=== PATIENT | female | born 1970 | race Caucasian/White ===

== ENCOUNTER → 2018-10-28 | Outpatient (CLI) | payer OTHER ==
--- NOTE | 2018-10-28 11:51 | RAD ---
EXAM DESCRIPTION: Ankle,Left 3 Views CLINICAL HISTORY: 47 years, Female, PAIN IN LEFT ANKLE AND JOINTS OF LEFT FOOT COMPARISON: None. TECHNIQUE: AP/lateral/oblique of the left ankle FINDINGS: Intact medial and lateral malleolus. Spurring at the medial malleolus. There is extensive soft tissue swelling laterally and medially. Intact proximal metatarsals. Intact dome of the talus. Lateral view shows no evidence of fracture of the body of the talus or calcaneus. Moderate plantar and small dorsal calcaneal spurring is seen. No ankle joint narrowing, spurring or effusion. IMPRESSION: Negative for fracture or dislocation. Electronically signed by: Jarrell Gupta MD 10/28/2018 11:49 AM CDT
== END ==
LOC: YCFC.O 10:49
PROVIDERS: ATTEND Nurse Practitioner Family
DX: M25.572 Pain in left ankle and joints of left foot (principal)

== ENCOUNTER → 2019-05-22 | Outpatient (CLI) | payer OTHER ==
--- NOTE | 2019-05-22 16:49 | MAM ---
EXAM DESCRIPTION: 3D Screening BILATERAL : Digital Mammography. CLINICAL HISTORY: 48 years Female SCREENING MAMMO . No complaints. No personal history of breast cancer. Mother with breast cancer age 67. No remote family history of breast cancer. Menarche age 10. Childbirth age 18. Partial hysterectomy age 26. Left breast biopsy benign fibroadenoma.. Lifetime risk of developing breast cancer (Tyrer-Cuzick model)(%): 22.0. COMPARISON: Prior studies not yet available for comparison.. No prior reports available. TECHNIQUE: Bilateral CC and MLO projection full-field images, digital tomosynthesis and digital 2-D mammographic technique. CAD available for 2-D images. Note: Tomosynthesis was not utilized for the anterior and outer breast margins due to large size of bilateral breasts. FINDINGS: The breast parenchymal density pattern is: Scattered areas of fibroglandular density. No skin thickening or nipple retraction. Lobulated mass density in the surrounding soft tissues in the upper outer quadrant of the middle third of the left breast contains a biopsy site marker consistent with history of benign fibroadenoma biopsy. Bilateral solitary microcalcifications. Posterior inferior skin mole marker. Bilateral small mass densities in the breast more prevalent in the middle third and anterior third. IMPRESSION: BI-RADS CATEGORY: 0 - INCOMPLETE- Need prior mammograms for comparison. FOLLOW-UP: Comparison with prior examination(s) when available. Written communication explaining the results and follow-up will be mailed to the patient and referring care provider. Electronically signed by: Edison Bell MD 05/22/2019 4:47 PM [facility]
== END ==
LOC: LAB.O 07:05
PROVIDERS: ATTEND Family Medicine
DX: Z12.31 Encounter for screening mammogram for malignant neoplasm of breast (principal); R60.0 Localized edema; R63.5 Abnormal weight gain; E78.5 Hyperlipidemia, unspecified

== ENCOUNTER → 2019-11-20 | Outpatient (CLI) | payer OTHER | LOC: YCFC.O 11:41 | PROVIDERS: ATTEND Nurse Practitioner | DX: Z03.818 Encounter for observation for suspected exposure to other biological agents ruled out (principal) ==

== ENCOUNTER → 2019-12-30 | Outpatient (CLI) | payer OTHER | LOC: YCFC.O 07:53 | PROVIDERS: ATTEND Family Medicine | DX: E78.5 Hyperlipidemia, unspecified (principal); I10 Essential (primary) hypertension; R06.09 Other forms of dyspnea; R53.83 Other fatigue ==

== ENCOUNTER → 2020-02-04 | Outpatient (CLI) | payer OTHER | LOC: YCFC.O 09:43 | PROVIDERS: ATTEND Family Medicine | DX: Z20.828 Contact with and (suspected) exposure to other viral communicable diseases (principal) ==

== ENCOUNTER 2020-02-20 05:15 | Day surgery (SDC) | payer OTHER ==
[2020-02-20] MEDS ORDERED: PROPOFOL 200 MG/20 ML VIAL IV ONE (05:16)
[2020-02-20] MEDS ORDERED: LIDOCAINE 1% 10 ML VIAL INJ ONE (05:16)
[2020-02-20] MEDS ORDERED: LACTATED RINGERS 1,000 ML ONE (06:41)
[2020-02-20] MEDS ORDERED: KETAMINE HCL 100 MG/ML VIAL ONE (10:02)
--- NOTE | 2020-02-20 10:50 | OP ---
DATE OF PROCEDURE: 02/20/20 PREOPERATIVE DIAGNOSIS: 1. Screening colonoscopy. POSTOPERATIVE DIAGNOSIS: 1. One polyp at 40 cm. PROCEDURE: 1. Colonoscopy with forceps polypectomy. SURGEON: Bry Thomas MD ANESTHESIA: General. FINDINGS: There was a single 2.5 cm polyp, slightly elongated. Otherwise normal. There was some vegetable material throughout, but we did get an adequate exam. COMPLICATIONS: None. PLAN: Discharge. INDICATION: As stated. PROCEDURE: General anesthesia was induced in the lateral position. Digital rectal exam was normal. The colonoscope was inserted. There was some irrigation necessary due to some liquid stool and vegetable matter, but we got all the way to the cecum. In the cecum, there was more vegetable material which was irrigated extensively until we were certain we saw all surfaces. Upon withdrawal, the mucosal surfaces appeared normal. There was a single polyp on a fold, slightly elongated at about 40 cm. This was completely excised. No other abnormalities were seen. The patient tolerated the procedure and was taken to Recovery to be discharged. Followup for biopsy result. #[id number] cc: Nargis Huynh MD MTDD
[2020-02-20 11:36] VITALS: BP 138/98; TEMP 97.3; O2SAT 97
== END 2020-02-20 11:20 | disposition home or self-care (01) ==
LOC: AMB 05:15
PROVIDERS: ATTEND Surgery
DX: Z12.11 Encounter for screening for malignant neoplasm of colon (principal); K63.5 Polyp of colon; F41.9 Anxiety disorder, unspecified; K59.00 Constipation, unspecified; F32.9 Major depressive disorder, single episode, unspecified; K76.0 Fatty (change of) liver, not elsewhere classified; E66.01 Morbid (severe) obesity due to excess calories; Z68.43 Body mass index [BMI] 50.0-59.9, adult; Z90.710 Acquired absence of both cervix and uterus; Z96.653 Presence of artificial knee joint, bilateral; Z79.899 Other long term (current) drug therapy
CPT/HCPCS: 00812; 45380; J3490; J7120

== ENCOUNTER → 2020-03-10 | Outpatient (CLI) | payer OTHER | LOC: NM 08:07 | PROVIDERS: ATTEND Family Medicine | DX: R06.09 Other forms of dyspnea (principal); I34.0 Nonrheumatic mitral (valve) insufficiency; I36.1 Nonrheumatic tricuspid (valve) insufficiency; R94.31 Abnormal electrocardiogram [ECG] [EKG] ==

== ENCOUNTER → 2020-06-18 | Outpatient (CLI) | payer OTHER ==
--- NOTE | 2020-06-22 15:18 | MAM ---
EXAM DESCRIPTION: 3D Screening BILATERAL : Digital Mammography. CLINICAL HISTORY: 49 years Female SCREENING . No complaints. Mother with breast cancer age 67. Remote family history of breast cancer. Menarche age 10. Childbirth age 18. Partial hysterectomy age 28. No HRT. Benign fibroadenoma on left breast biopsy. Lifetime risk of developing breast cancer (Tyrer-Cuzick model)(%): 20.2. COMPARISON: Bilateral screening digital breast tomosynthesis April 2019 TECHNIQUE: Bilateral CC and MLO projection full-field images, digital tomosynthesis mammographic technique. Bilateral digital 2-D full-field MLO images. Tiling technique with 2-D images bilaterally due to size of the breasts. CAD available for 2-D images. FINDINGS: The breast parenchymal density pattern is: Almost entirely fatty. Stable biopsy proven benign fibroadenoma seen as dense mass with lobulated and circumscribed contour and small calcifications in the middle third of the lateral left breast. Biopsy site marker clip in the mass. Axillary nodes. Solitary microcalcifications. No skin thickening or nipple retraction No new focal, stellate mass or density, focal asymmetry , and no suspicious microcalcifications bilaterally. Stable mammograms compared to prior study. IMPRESSION: Benign exam. BIRAD CATEGORY: 2 BENIGN FINDINGS. RECOMMENDATIONS: FOLLOW UP: Routine digital bilateral mammographic screening, one year interval from May 2020. Written communication explaining the IMPRESSION and follow-up, will be mailed to the patient and referring health care provider. According to the [employer], yearly mammograms are recommended starting at age 40 and continuing as long as a woman is in good health. Any breast change noted on a breast self-exam should be reported promptly to the patient's healthcare provider. Breast MRI is recommended for women with an approximately 20-25% or greater lifetime risk of breast cancer, including women with a strong family history of breast or ovarian cancer and women who have been treated for Hodgkin's disease. A negative mammographic report should not delay tissue diagnosis in patients with significant clinical history or physical findings. Extremely dense breast tissue limits the sensitivity of digital mammography. Electronically signed by: Edison Bell MD 06/22/2020 3:16 PM [facility]
== END ==
LOC: MAMMO 14:57
PROVIDERS: ATTEND Family Medicine
DX: Z12.31 Encounter for screening mammogram for malignant neoplasm of breast (principal)